=== PATIENT | female | born 1975 | race Caucasian/White ===

== ENCOUNTER 2017-01-19 08:42 | Emergency (ER) | payer MEDICARE | END 2017-01-19 09:19 | disposition home or self-care (01) | LOC: ER 08:42 | DX: N39.0 Urinary tract infection, site not specified (principal); F41.9 Anxiety disorder, unspecified ==

== ENCOUNTER 2017-02-22 17:16 | Emergency (ER) | payer MEDICARE | END 2017-02-22 20:05 | disposition home or self-care (01) | LOC: ER 17:16 | DX: N39.0 Urinary tract infection, site not specified (principal); F41.9 Anxiety disorder, unspecified; F17.210 Nicotine dependence, cigarettes, uncomplicated | CPT/HCPCS: 36415; 96361; 96365; 96375; J0696; J1885 ==